=== PATIENT | female | born 1980 | race American Indian/Alaskan Native ===

== ENCOUNTER 2018-08-11 03:09 | Emergency (ER) | payer MEDICAID ==
[2018-08-11 03:49] LABS: HCG Qualitative,Urine Negative (Negative)
[2018-08-11 03:51] LABS: Bilirubin,Urine NEG (Negative); Blood,Urine LG (Negative); Color,Urine Yellow (Yellow); Mucus,Urine FEW /HPF; Protein,Urine <15 mg/dL mg/dL (Negative); Urobilinogen,Urine < 2.0 mg/dL (<2.0)
[2018-08-11] MEDS ORDERED: TORADOL IM ONE (04:49)
--- NOTE | 2018-08-11 04:53 | Emergency Department Report ---
ED Female HPI - General Chief complaint: Urogenital-Female Stated complaint: FEVER,VAGINAL PAIN, DISCHARGE AND ODOR Time Seen by Provider: 08/11/18 04:09 Source: patient Mode of arrival: Ambulatory Limitations: No Limitations - History of Present Illness Initial comments: Patient is a 38-year-old -[place]ir[place] female with a history of uterine fibro ids abnormal uterine bleeding who presents for vaginal discharge white thick malodorous and dysuria 1 week patient has [address] [facility] follow-up for next week states vaginal discomfort as reason for visit tonight course and treatment for Symptoms are exacerbated by nothing symptoms are relieved by nothing there's no fever no chills no nausea no vomiting no back pain MD Complaint: vaginal discharge Onset/Timin -: week(s) Radiation: non-radiating Severity: moderate Severity scale (0 -10): 4 Quality: aching, other (itching ) Consistency: constant Improves with: none Worsens with: none Are you Now?: No Last Menstrual Period: 08/03/18 EDC: 05/10/19 Associated Symptoms: vaginal discharge, dysuria - Related Data Sexually active: Yes : 2 Para: 2 A: 0 Previous Rx's Medication Instructions Recorded Last Taken Type Naproxen 500 mg PO BID PRN #30 tablet 08/11/18 Unknown Rx Nitrofurantoin Monohyd/M-Cryst 100 mg PO BID 7 Days #14 capsule 08/11/18 Unknown Rx [Macrobid 100 mg Capsule] Terconazole 0.4% (Nf) [Terazol 7 1 applicatio VG DAILY 7 Days #1 08/11/18 Unknown Rx (Nf)] tube metroNIDAZOLE 0.75%(NF) [Metrogel 1 applicatio TP QHS 7 Days #1 tube 08/11/18 Unknown Rx 0.75% TOPICAL] Allergies Allergy/AdvReac Type Severity Reaction Status Date / Time ondansetron [From Zofran] Allergy Hives Verified 08/11/18 03:28 ED Review of Systems ROS: Stated complaint: FEVER,VAGINAL PAIN, DISCHARGE AND ODOR Other details as noted in HPI Constitutional: denies: chills, fever Eyes: denies: eye pain, eye discharge, vision change ENT: denies: ear pain, throat pain Respiratory: denies: cough, shortness of breath, wheezing Cardiovascular: denies: chest pain, palpitations Endocrine: no symptoms reported Gastrointestinal: denies: abdominal pain, nausea, diarrhea Genitourinary: urgency, dysuria, frequency. denies: hematuria, discharge, abnormal menses, dyspareunia Musculoskeletal: denies: back pain, joint swelling, arthralgia Skin: denies: rash, lesions Neurological: denies: headache, weakness, paresthesias Psychiatric: denies: anxiety, depression Hematological/Lymphatic: denies: easy bleeding, easy bruising ED Past Medical Hx - Past Medical History Hx Hypertension: Yes Hx Seizures: Yes Hx Psychiatric Treatment: Yes (ANXIETY) Additional medical history: Spinal Stenosis - Surgical History Additional Surgical History: Monthly epidural for spinal stenosis - Social History Smoking Status: Current Every Day Smoker Substance Use Type: Alcohol - Medications Home Medications: Home Medications Medication Instructions Recorded Confirmed Last Taken Type Naproxen 500 mg PO BID PRN #30 tablet 08/11/18 Unknown Rx Nitrofurantoin Monohyd/M-Cryst 100 mg PO BID 7 Days #14 capsule 08/11/18 Unknown Rx [Macrobid 100 mg Capsule] Terconazole 0.4% (Nf) [Terazol 7 1 applicatio VG DAILY 7 Days #1 08/11/18 Unknown Rx (Nf)] tube metroNIDAZOLE 0.75%(NF) [Metrogel 1 applicatio TP QHS 7 Days #1 tube 08/11/18 Unknown Rx 0.75% TOPICAL] ED Physical Exam - General Limitations: No Limitations General appearance: alert, in no apparent distress - Head Head exam: Present: atraumatic, normocephalic - Eye Eye exam: Present: normal appearance, PERRL, EOMI Pupils: Present: normal accommodation - ENT ENT exam: Present: mucous membranes moist - Neck Neck exam: Present: normal inspection, full ROM - Respiratory Respiratory exam: Present: normal lung sounds bilaterally. Absent: respiratory distress, wheezes, stridor, chest wall tenderness - Cardiovascular Cardiovascular Exam: Present: regular rate, normal rhythm, normal heart sounds. Absent: systolic murmur, diastolic murmur, rubs, gallop - GI/Abdominal GI/Abdominal exam: Present: soft, normal bowel sounds. Absent: tenderness, rebound, bruit, hernia - Rectal Rectal exam: Present: deferred - External exam: Present: normal external exam. Absent: erythema, swelling, lesions, lacerations, ecchymosis, bleeding Speculum exam: Present: erythema, vaginal discharge (white thick malodorous ). Absent: cervical discharge, vaginal bleeding (clotts), foreign body, tissue, laceration Bi-manual exam: Absent: cervical motion tendernes - Extremities Exam Extremities exam: Present: normal inspection, full ROM. Absent: tenderness - Back Exam Back exam: Present: normal inspection, full ROM. Absent: tenderness, CVA tenderness (R), CVA tenderness (L), muscle spasm, rash noted - Neurological Exam Neurological exam: Present: alert, oriented X3 - Psychiatric Psychiatric exam: Present: normal affect, normal mood - Skin Skin exam: Present: warm, dry, intact, normal color. Absent: rash ED Course Vital Signs 08/11/18 03:20 Temperature 97.9 F Pulse Rate 88 Respiratory 18 Rate Blood Pressure 119/84 O2 Sat by Pulse 98 Oximetry ED Medical Decision Making - Lab Data Labs 08/11/18 03:00 Urine Color Yellow Urine Turbidity Hazy Urine pH 5.0 Ur Specific [place] 1.012 Urine Protein <15 mg/dl Urine Glucose (UA) Neg Urine Ketones Neg Urine Blood Lg Urine Nitrite Neg Ur Reducing Substances Not Reportable Urine Bilirubin Neg Urine Ictotest Not Reportable Urine Urobilinogen < 2.0 Ur Leukocyte Esterase Sm Urine WBC (Auto) 33.0 H Urine RBC (Auto) 16.0 U Epithel Cells (Auto) 2.0 Urine Mucus Few Urine HCG, Qual Negative wet prep pos for clues - Medical Decision Making this bv and UTI, plan: macrobid, flagyl, triconzole 4% follow up with [facility] as scheduled for management of fibroids, and AUB, there is no vaginal bleeding at this time. Critical care attestation.: If time is entered above; I have spent that time in minutes in the direct care of this critically ill patient, excluding procedure time. ED Disposition Clinical Impression: Bacterial vaginosis UTI (urinary tract infection) Qualifiers: Urinary tract infection type: acute cystitis Hematuria presence: without hematuria Qualified Code(s): N30.00 - Acute cystitis without hematuria Disposition: TO HOME OR SELFCARE Is pt being admited?: No Does the pt Need Aspirin: No Condition: Stable Instructions: Bacterial Vaginosis (ED), Urinary Tract Infection in Women (ED) Prescriptions: metroNIDAZOLE 0.75%(NF) [Metrogel 0.75% TOPICAL] 1 applicatio TP QHS 7 Days #1 tube Naproxen 500 mg PO BID PRN #30 tablet PRN Reason: Pain , Severe (7-10) Nitrofurantoin Monohyd/M-Cryst [Macrobid 100 mg Capsule] 100 mg PO BID 7 Days #14 capsule Terconazole 0.4% (Nf) [Terazol 7 (Nf)] 1 applicatio VG DAILY 7 Days #1 tube Referrals: BREONNA RODRIGUEZ MD [Primary Care Provider] - 3-5 Days Forms: Work/School Release Form(ED) Time of Disposition: 05:34
[2018-08-11 05:49] VITALS: BP 132/72
== END 2018-08-11 05:47 | disposition home or self-care (01) ==
LOC: ED 03:09
DX: N76.0 Acute vaginitis (principal); B96.89 Other specified bacterial agents as the cause of diseases classified elsewhere; N39.0 Urinary tract infection, site not specified; I10 Essential (primary) hypertension; F41.9 Anxiety disorder, unspecified; F17.200 Nicotine dependence, unspecified, uncomplicated; Z88.8 Allergy status to other drugs, medicaments and biological substances
CPT/HCPCS: 81001; 81025; 87210; 87591; 96372; 99284; J1885

== ENCOUNTER 2018-11-15 20:33 | Emergency (ER) | payer MEDICAID ==
[2018-11-15] MEDS ORDERED: KEPPRA 1,000 MG/NS 0.75% 100ML 1,000 MG/100 ML BAG IV ONE (20:47)
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
[2018-11-15] MEDS ORDERED: TYLENOL PO ONE (20:58)
[2018-11-15 21:31] LABS: Basophils % (Auto) 0.4 % (0.0-1.8); Eosinophils % (Auto) 0.8 % (0.0-4.3); Hematocrit 38.1 % (30.3-42.9); Lymphocytes # (Auto) 1.6 K/mm3 (1.2-5.4); Lymphocytes % (Auto) 27.1 % (13.4-35.0); Mean Corpuscular HGB Conc 34 % (30-34); Mean Corpuscular Volume 90 fl (79-97); Monocytes # (Auto) 0.4 K/mm3 (0.0-0.8); Monocytes % (Auto) 6.6 % (0.0-7.3); Platelet Count 246 K/mm3 (140-440); Red Blood Count 4.25 M/mm3 (3.65-5.03); Red Cell Distribution Width 13.1 % (13.2-15.2)
[2018-11-15 22:18] LABS: Alanine Aminotransferase 25 units/L (7-56); Albumin 3.6 g/dL (3.9-5); BUN/Creatinine Ratio 14; Blood Urea Nitrogen 11 mg/dL (7-17); Calcium 8.5 mg/dL (8.4-10.2); Hemolysis Index 7
[2018-11-15 22:36] LABS: Bilirubin,Direct < 0.2 mg/dL (0-0.2)
[2018-11-15] MEDS ORDERED: REGLAN IV ONE (23:25)
[2018-11-15] MEDS ORDERED: MORPHINE IV ONE (23:25)
[2018-11-15] MEDS ORDERED: ZOFRAN ONE (23:28)
[2018-11-15] MEDS ORDERED: ZOFRAN IV ONE (23:28)
[2018-11-15] MEDS ORDERED: MORPHINE ONE (23:29)
[2018-11-16 01:18] LABS: Bilirubin,Urine NEG (Negative); Blood,Urine NEG (Negative); Color,Urine Straw (Yellow); Mucus,Urine FEW /HPF; Protein,Urine <15 mg/dL mg/dL (Negative); Urobilinogen,Urine < 2.0 mg/dL (<2.0)
[2018-11-16 01:26] LABS: Amphetamine Screen,Urine PRESUMPTIVE NEGATIVE; Benzodiazepines Screen,Urine PRESUMPTIVE NEGATIVE; Cannabinoid Screen,Urine PRESUMPTIVE NEGATIVE; Cocaine Screen,Urine PRESUMPTIVE NEGATIVE; Methadone Screen,Urine PRESUMPTIVE NEGATIVE
[2018-11-16 01:40] LABS: Opiate Screen,Urine PRESUMPTIVE POSITIVE
--- NOTE | 2018-11-16 02:16 | Cat Scan Report ---
PROCEDURE: CT HEAD/BRAIN WO CON TECHNIQUE: Computerized tomography of the head was performed without contrast material. CT DOSE LENGTH PRODUCT: 805.4 mGycm HISTORY: Seizure COMPARISONS: None . FINDINGS: Skull and scalp: Normal . Paranasal sinuses: Normal . Ventricles and subarachnoid spaces: Normal . Cerebrum: No evidence of hemorrhage, acute infarction or mass . Cerebellum and brainstem: No evidence of hemorrhage, acute infarction or mass . Vasculature: Normal . IMPRESSION: Normal Examination . This document is electronically signed by Polo Ochoa MD., Nov 16 2018 02:14:42 AM ET
[2018-11-16 02:55] VITALS: BP 120/57
== END 2018-11-16 02:56 | disposition home or self-care (01) ==
LOC: ED 20:33
DX: G40.909 Epilepsy, unspecified, not intractable, without status epilepticus (principal); I10 Essential (primary) hypertension; F17.200 Nicotine dependence, unspecified, uncomplicated; R51 Headache; Z88.8 Allergy status to other drugs, medicaments and biological substances
CPT/HCPCS: 36415; 70450; 80048; 80076; 80307; 81001; 84703; 85025; 96365; 96375; 99285; J1953; J2270; J2405

== ENCOUNTER 2019-03-11 22:32 | Emergency (ER) | payer OTHER, MEDICAID ==
[2019-03-11 22:40] VITALS: BP 127/74
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
[2019-03-11] MEDS ORDERED: IBUPROFEN PO ONE (22:52)
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
[2019-03-12] MEDS ORDERED: IBUPROFEN ONE (01:39)
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
== END 2019-03-12 03:46 | disposition home or self-care (01) ==
LOC: ED 22:32
DX: S46.912A Strain of unspecified muscle, fascia and tendon at shoulder and upper arm level, left arm, initial encounter (principal); I10 Essential (primary) hypertension; F41.9 Anxiety disorder, unspecified; Z88.8 Allergy status to other drugs, medicaments and biological substances; V87.7XXA Person injured in collision between other specified motor vehicles (traffic), initial encounter; Y93.89 Activity, other specified; Y92.488 Other paved roadways as the place of occurrence of the external cause; Y99.8 Other external cause status